=== PATIENT | female | born 1985 | race Caucasian/White ===

== ENCOUNTER 2021-04-14 16:05 | Emergency (ER) | payer BC ==
[~2021-04-14] VITALS: Ht 170.2 cm; Wt 61.2 kg
[2021-04-14 16:49] VITALS: BP 128/88
--- NOTE | 2021-04-14 16:51 | PCM.EKG ---
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
[2021-04-14 16:54] LABS: BASOPHIL % 0.8 % (0.0-0.2); LYMPHOCYTES # 1.41 10^3/uL1 (1.0-4.8); LYMPHOCYTES % 36.1 % (24.0-44.0); MEAN CORP HGB 30.2 pg (26-34); MONOCYTES # 0.5 10^3/uL (0.3-0.8); NEUTROPHILS % 51.1 % (41.0-85.0); PLATELET COUNT 215 10^3/uL (150-400); RED CELL DISTRIBUTION WIDTH 11.6 % (11.5-14.5)
--- NOTE | 2021-04-14 16:59 | NUR ---
ARRIVAL PT AMBULATES WITH TO ED6 WITH C/O CP THAT WORSENED THIS AFTERNOON. THE PT STATES THAT SHE HAS 6/10 PAIN BEHIND THE LEFT SHOULDER BLADE, CHEST FEELS HEAVY AND RADIATES TO BACK, THE PT STATES THAT BOTH HER HANDS ARE TINGLING. PT STATES THAT SHE HAS HAD DULL CP LAST WEEK BUT R/T ANXIETY THE PT BELIEVES, TODAY THE CP WAS SEVERELY WORSENED. VITAL SIGNS OBTAINED. DR. LINDSEY NOTIFIED OF PTS ARRIVAL.
[2021-04-14 17:15] LABS: CARBON DIOXIDE 27.1 mmol/L (20.0-32); GLUCOSE 95 mg/dL (70-110)
--- NOTE | 2021-04-14 17:21 | DIREP ---
PROCEDURE:CHEST 1 VIEW COMPARISON:[facility], CR, XRAY CHEST 2 VWS, 04/02/2019, 01:26 PM. INDICATIONS:cHEST PAIN FINDINGS: LUNGS/PLEURA:No significant pulmonary parenchymal abnormalities. No effusions. No pneumothorax VASCULATURE:Normal. Unremarkable pulmonary vasculature. CARDIAC:Normal. No cardiac silhouette abnormality or cardiomegaly. MEDIASTINUM:Normal. No visible mass or adenopathy. BONES:Normal. No fracture or visible bony lesion. OTHER:Negative. CONCLUSION:No acute disease. No significant change has occurred. Dictated by: Aldair Terrell MD on 04/14/2021 at 05:18 PM
[2021-04-14] MEDS ORDERED: TORADOL IM STA (18:09)
[2021-04-14] MEDS ORDERED: TORADOL ONE (18:13)
--- NOTE | 2021-04-14 18:17 | ER.PDOC ---
General Chief Complaint: Chest Pain-Cardiac Nature Stated Complaint: CHEST PAIN Time seen by MD: 18:14 Source: patient Exam Limitations: no limitations History of Present Illness Initial Comments 36-year-old female presents with chest pain. Localized to the left side of the chest without any radiation. No shortness of breath. No pleuritic chest pain. Had a recent URI symptoms. Is not vaccinated for coronavirus and does not want testing today. No history of CAD or any CAD risk factors. No family history of early cardiac under the age of 40.No history of DVT or PE. No recent leg swelling. Allergies: Coded Allergies: No Known Allergies (Unverified , 03/25/15) Home Meds No Active Prescriptions or Reported Meds Past Medical History Surgical History: breast augmentation, cholecystectomy, tubal Social History Alcohol Use: occassionally Drug Use: none Constitutional: no symptoms reported EENTM: no symptoms reported Respiratory: no symptoms reported Cardiovascular: chest pain Gastrointestinal: no symptoms reported Genitourinary: no symptoms reported Musculoskeletal: no symptoms reported Skin: no symptoms reported Psychiatric/Neurological: no symptoms reported Physical Exam HEENT: PERRL/EOMI Neck: Non-Tender Respiratory: chest non-tender, lungs clear Cardiovascular: Normal Peripheral Pulses, Regular Rate, Rhythm Gastrointestinal: Normal Bowel Sounds Rectal: Normal Exam Extremities: Normal Range of Motion, Non-Tender Skin: Normal Color Results/Orders Results/Orders Orders - JOHN LINDSEY MD Cbc With Auto Diff (04/14/21 16:48) Comprehensive Metabolic Panel (04/14/21 16:48) Troponin I High Sensitivity (04/14/21 16:48) Ekg-Routine (04/14/21 16:48) Xr Chest 1v (04/14/21 16:48) Ketorolac Tromethamine (Toradol) (04/14/21 18:09) Vital Signs Date Time Temp Pulse Resp B/P (MAP) Pulse Ox O2 Delivery O2 Flow Rate FiO2 04/14/21 16:49 97.8 79 20 100 04/14/21 16:49 97.8 79 20 128/88 (101) 100 Room Air 04/14/21 16:49 97.8 79 20 Laboratory Tests Test 04/14/21 16:32 White Blood Count 3.9 10^3/uL (4.5-11.0) L Red Blood Count 5.00 10^6/uL (4.00-5.20) Hemoglobin 15.1 g/dL (12.0-15.0) H Hematocrit 45.5 % (36.0-46.0) Mean Corpuscular Volume 91.0 fL (78-100) Mean Corpuscular Hemoglobin 30.2 pg (26-34) Mean Corpuscular Hemoglobin Concent 33.2 g/dL (33-36.5) Red Cell Distribution Width 11.6 % (11.5-14.5) Platelet Count 215 10^3/uL (150-400) Mean Platelet Volume 9.7 fL (7.8-11.0) Neutrophils (%) (Auto) 51.1 % (41.0-85.0) Lymphocytes (%) (Auto) 36.1 % (24.0-44.0) Monocytes (%) (Auto) 12.0 % (5.0-12.0) Neutrophils # (Auto) 2.0 10^3/uL (1.8-7.7) Lymphocytes # (Auto) 1.41 10^3/uL1 (1.0-4.8) Monocytes # (Auto) 0.5 10^3/uL (0.3-0.8) Absolute Immature Granulocyte (auto 0 10^3 u/L (0-2) Absolute Eosinophils (auto) 0.0 10^3/uL (0.0-0.2) Immature Granulocytes % 0.00 % (0.00-0.50) Eosinophils % 0.0 % (0.0-5.0) Basophils % 0.8 % (0.0-0.2) H Basophils # 0.0 10^3/uL (0.0-0.1) Sodium Level 142 mmol/L (132-145) Potassium Level 3.4 mmol/L (3.6-5.2) L Chloride Level 103.0 mmol/L (96-109) Carbon Dioxide Level 27.1 mmol/L (20.0-32) Anion Gap 15.3 Blood Urea Nitrogen 10 mg/dL (7-18) Creatinine 0.81 mg/dL (0.59-1.40) Estimated GFR () 96.8 (>/=60) Est GFR (CKD-EPI)(Non-Afr [place]e) 80.0 (>/=60) BUN/Creatinine Ratio 12.0 Glucose Level 95 mg/dL (70-110) Calcium Level 9.5 mg/dL (8.4-10.5) Total Bilirubin 0.4 mg/dL (0.2-1.0) Aspartate Amino Transferase (AST) 15 U/L (0-35) Alanine Aminotransferase (ALT) 20 U/L (12-78) Alkaline Phosphatase 51 U/L (50-136) Troponin I High Sensitivity < 4 ng/L (0-50) Total Protein 8.2 g/dL (6.4-8.2) Albumin 4.7 g/dL (3.4-5.0) Globulin 3.5 Albumin/Globulin Ratio 1.342 Progress Progress Patient's cardiac work-up is unremarkable. Likely pleurisy versus chest wall pain. Will discharge with use of Motrin and have her follow-up with PCP if her chest pain persists. PERC negative. Heart score 1 ER DEPART Departure Time of Disposition: 18:17 Disposition: 01 HOME / SELF CARE / HOMELESS Impression: Primary Impression: Chest pain Condition: Stable Referrals: [facility] [employer]N (PCP) PRIMARY CARE PROVIDER Scripts No Active Prescriptions or Reported Meds Duration or Time Spent with Pa: JOHN RAZO MD Apr 14, 2021 18:17
[2021-04-14 18:18] VITALS: BP 124/82
[2021-04-14] MEDS ORDERED: TORADOL IV PRN (18:30)
--- NOTE | 2021-04-14 18:45 | NUR ---
ANTONELLA ENTERED ROOM TO DISCHARGE PT AND VOICES HER CONCERN ABOUT BEING DEHYDRATED AND NEEDING A BAG OF FLUIDS. SHE ALSO REQUESTED A COPY OF HER LABS. INFORMED THE PT SHE HAS TO GO TO [facility] ON FRIDAY. PT VERBALIZED UNDERSTANDING.
== END 2021-04-14 18:23 | disposition home or self-care (01) ==
LOC: ER 16:05
DX: R07.9 Chest pain, unspecified (principal); Z90.49 Acquired absence of other specified parts of digestive tract
CPT/HCPCS: 36415; 71045; 80053; 84484; 85025; 93005; 96374; 99284; J1885